=== PATIENT | female | born 1955 | race Caucasian/White ===

== ENCOUNTER → 2016-10-31 | Outpatient (CLI) | payer BC, OTHER ==
[~2016-10-31] VITALS: Ht 157.5 cm; Wt 86.2 kg
[~2016-10-31] MED LIST: AMITRIPTYLINE H10 M3 PO; BYDUREON P2 MG/0.65 SUBQ; CRESTOR10 MG PO; DUAVEE 0.45-201 EACH PO; HYDROCODON-ACE1 EAC7 PO; LOPRESSOR50 PO; METAXALONE800 MG PO; METFORMIN HCL500 MG PO; PIOGLITAZONE15 MG; PRINIVIL20 MG PO; TRAMADOL 50 MG50 MG PO
--- NOTE | ~2016-10-31 | CATHLAB ---
[facility] [id number] [place] [address] INVASIVE PROCEDURE REPORT Name: KAREN WHALEN Room #: REG [facility]#: [id number] Admission: 10/31/16 Attend Phys: Nam Hernandez Discharge: Date of : 57 Date of Service: 11/14/16 1319 Report #: [id number] THIS REPORT FOR: //name// APPROVED REPORT Patient Details The patient is a 61 year-old female Event Personnel Yany Bagley Monitor, Cassie Parks Monitor, Karen Marcus, Nam Callejas Germination Testing Manager, Matthew Carson spool sander Performed Art Access - R femoral artery* Left Heart Cath w/or w/o Coronaries [id number] [facility] Hemostasis with Manual pressure 97284 Initial Mod Sed Same Phys/QHP Gr5y [id number] SUPERVISION OF CONSCIOUS SEDATION Admission/Lab Medications/Medications given during procedure 1% Lidocaine Subcut 10 ml, Versed IV 1.5 mg, Versed IV 0.5 mg Procedure Narrative The Right Groin^ was infiltrated with 1% Lidocaine subcutaneous anesthesia. A PINNACLE 4FR Sheath #[id number] sheath was inserted into the RFA^. Coronary angiography was performed using coronary diagnostic catheters. The right coronary system was accessed and visualized with a 4FR MULTIPACK JR 4/JL 4/PIG #[id number] catheter. The left coronary system was accessed and visualized with a 4FR MULTIPACK JR 4/JL 4/PIG #[id number] catheter. The left ventricle was accessed and visualized with a 4FR MULTIPACK JR 4/JL 4/PIG #[id number] catheter. Pre-demployment femoral angiogram was performed . Hemostasis was obtained with manual pressure following sheath removal without any complications. The patient tolerated the procedure well and there were no complications associated with the procedure. There was no hematoma. Intraoperative Conscious Sedation Versed 1.5 mg Fluoro Time: 1.53 minutes Dose: DAP 2226.00 cGycm2 Contrast Type and Amount: Omnipaque 50 ml [facility] [address] [place] [address] INVASIVE PROCEDURE REPORT Name: KAREN WHALEN Room #: REG [facility]#: [id number] Admission: 10/31/16 Attend Phys: Nam Hernandez Discharge: Date of : 57 Date of Service: 11/14/16 1319 Report #: [id number] Diagnostic Cath Left Main NORMAL ORIGIN AND CALIBER BIFURCATES INTO LAD AND LCX FREE OF HIGH GRADE DISEASE LAD MODERATE CALIBER TYPE 2 VESSEL FREE OF OBSTRUCTIVE LESIONS Diagonal 1 SMALL CALIBER WITHOUT SIGNIFICANT LESIONS Circumflex SMALL NONDOMINANT VESSEL FREE OF SIGNIFICANT STENOSIS OM1 BIFURCATING SMALL CALIBER WITHOUT OBSTRUCTIVE LESIONS Right Coronary LARGE CALIBER DOMINANT VESSEL OF NORMAL ORIGIN FREE OF SIGNIFICANT LESIONS OR IRREGULARITIES Left Ventriculography Left Ventriculography was not performed. Hemodynamics The aortic pressure is 148/75 mmHg with a mean of 86 mmHg. The left ventricular pressure is 160/9 mmHg with a mean of mmHg. The left ventricular end diastolic pressure is 24 mmHg. Conclusion 1. ESSENTIALLY NORMAL CORONARY ARTERIES 2. NORMAL HEMODYNAMICS Recommendations Cardiac Risk Reduction Program <ELECTRONICALLY SIGNED> By: Nam Callejas MD 11/14/16 1319 131 Nam Callejas MD /INF
[2016-10-31 08:34] VITALS: BP 130/86
== END | disposition home or self-care (01) ==
LOC: CATH 07:59
DX: Z13.6 Encounter for screening for cardiovascular disorders (principal); F17.210 Nicotine dependence, cigarettes, uncomplicated; Z98.890 Other specified postprocedural states; E78.5 Hyperlipidemia, unspecified; I10 Essential (primary) hypertension; E11.9 Type 2 diabetes mellitus without complications

== ENCOUNTER → 2020-06-04 | Outpatient (CLI) | payer BC, OTHER | LOC: SJCVCIMAG 08:00 | PROVIDERS: ATTEND Internal Medicine | DX: R00.0 Tachycardia, unspecified (principal); R06.00 Dyspnea, unspecified; I10 Essential (primary) hypertension; E11.9 Type 2 diabetes mellitus without complications; E78.5 Hyperlipidemia, unspecified; F17.210 Nicotine dependence, cigarettes, uncomplicated; Z79.899 Other long term (current) drug therapy ==